=== PATIENT | female | born 1985 | race Two or more races ===

== ENCOUNTER 2024-10-24 20:12 | Emergency (ER) | payer MEDICAID, SELFPAY ==
[2024-10-24 20:56] VITALS: BP 128/88; PULSE 81; RESP 18; TEMP 36.4; O2SAT 96; BMI 36.1
--- NOTE | 2024-10-24 21:02 | XR_ITS ---
Examination: Clavicle 2 views, left Technique: Clavicle AP, angled up AP, 2 views Exam date and time: October 24 2024 2100 hours INDICATIONS: Injured the shoulder 2 days ago, shoulder pain. FINDINGS: Mild calcific tendinitis No clavicle fracture. No residual separation IMPRESSION: No clavicle fracture
--- NOTE | 2024-10-24 21:02 | XR_ITS ---
Examination: Shoulder,left, 3 views Technique: Shoulder AP internal rotation, AP external rotation, Y view shoulder, 3 views Exam date and time :October 24, 2024 2100 hours INDICATIONS: Left shoulder pain and injury disorder beginning 2 days ago FINDINGS: No shoulder fracture or dislocation Mild calcific tendinitis IMPRESSION: No shoulder fracture or dislocation
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
[2024-10-24] MEDS: KETOROLAC INJ 60 MG/2 ML VIAL 30 MG IM (21:24)
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
== END 2024-10-24 22:16 | disposition home or self-care (01) ==
PROVIDERS: Emergency Provider Emergency Medicine; PCP Family Medicine
DX: M75.32 Calcific tendinitis of left shoulder (principal)
CPT/HCPCS: 73000; 73030; 96372; 99283; J1885

== ENCOUNTER 2025-01-14 22:48 | Emergency (ER) | payer MEDICAID, SELFPAY ==
[2025-01-14 22:48] VITALS: BMI 33.5
[2025-01-14 23:10] VITALS: BP 170/98; PULSE 60; RESP 20; TEMP 36.8; O2SAT 96
--- NOTE | 2025-01-14 23:29 | PD.EDDENTL ---
ED Dental RME/HPI General Chief complaint: Dental/Oral/Throat Stated complaint: TOOTH PAIN Time Seen by Provider: 01/14/25 23:08 Source: patient and family Arrival date/time: 01/14/25 22:48 Mode of arrival: ambulatory Limitations: no limitations RME / HPI RME / HPI Narrative: 39-year-old female presents to the ED with complaint of dental pain that began last night. Onset (ago): day(s) (1.5) Duration: constant Severity: moderate Severity scale (1-10): 4 Relieving factors: nothing Exacerbating factors: chewing Context: history of dental caries Associated symptoms: gum swelling Treatment prior to arrival: none Related Data Previous Rx's ?Medication ?Instructions ?Recorded ibuprofen 800 mg tablet 800 mg PO TID PRN pain #30 tabs 02/18/22 etodolac 400 mg tablet 400 mg PO BID PRN pain #30 tabs 05/25/22 metaxalone 800 mg tablet 800 mg PO TID PRN muscle pain #30 05/25/22 tabs naproxen 500 mg tablet 500 mg PO BID PRN pain #30 tabs 05/22/23 ondansetron 4 mg disintegrating 4 mg PO Q8H PRN nausea and 05/22/23 tablet vomiting #30 tabs acetaminophen 500 mg capsule 500 mg PO Q6H PRN pain #30 caps 10/24/24 ibuprofen 600 mg tablet 600 mg PO Q8H PRN pain #20 tabs 10/24/24 Allergies Allergy/AdvReac Type Severity Reaction Status Date / Time No Known Allergies Allergy Verified 01/14/25 22:51 Review of Systems Review of Systems Systems Reviewed: All systems reviewed, normal except as documented ED Exam General Limitations: Present no limitations General appearance: Present alert and in no apparent distress Head Head exam: Present atraumatic and normocephalic Eye Eye exam: Present normal appearance and EOMI ENT ENT exam: Present normal oropharynx (TEETH 6 &7 DECAYED) and mucous membranes moist Neck Neck exam: Present normal inspection and full ROM Chest Chest inspection: Present normal inspection Extremities Exam Extremities exam: Present normal inspection and full ROM Back Exam Back exam: Present normal inspection Neurological Exam Neurological exam: Present alert and oriented X3 Psychiatric Psychiatric exam: Present normal affect and normal mood Skin Skin exam: Present warm, dry and intact Course Quality Measures none Orders Category Date Time Status Ketorolac Inj [Toradol Inj] Med 01/14/25 23:22 Discontinued 30 mg IM X1 ONE Vital Signs Vital signs: Vital Signs Temperature 98.3 F 01/14/25 23:10 Pulse Rate 60 01/14/25 23:10 Respiratory Rate 20 01/14/25 23:10 Blood Pressure 170/98 H 01/14/25 23:10 Pulse Oximetry (%) 96 01/14/25 23:10 Oxygen Delivery Method Room Air 01/14/25 23:10 Pulse ox 96% room air Dental / Oral MDM Narrative MDM Narrative:: Patient will have 30 mg Toradol she will be sent home with a prescription for penicillin and ibuprofen Patient data External records reviewed:: Other (specify) Clinical information provided by:: patient and family Social determinants that could affect healthcare access:: none Patient has the following chronic illnesses:: NA How is presenting disease/condition affected by chronic disease/condition?: caused by Evaluation data The following diagnostics were reviewed and interpreted by me:: lab results (NO LABS) Lab and/or radiology exams considered but not ordered:: NA Interpretation Summary: NA Medications / Prescriptions Medications or Prescriptions considered but not ordered:: NA Medication administrations:: Medication Administration History Discontinued Medications Ketorolac Tromethamine (Ketorolac Inj 60 Mg/2 Ml Vial) 30 mg IM X1 ONE Stop: 01/14/25 23:23 Last Admin: 01/14/25 23:42 Dose: 30 mg Documented By: MELIZA SERRATO Consultations Consultation(s) initiated? (list below): No Diagnosis Dental Differential Diagnosis: dental caries and toothache Most likely diagnosis given after review of the tests above:: NA Admission Indicated Admission indicated?: not indicated Admission Request Was there a request for admission?: No Disposition Plan Disposition Plan: Discharge Discharge Attestation Discharge Attestation: The patient and all family members were given an opportunity to ask questions and understood the discharge instructions. Discharge instructions specifically effects, indications for sooner follow up or return to the emergency department, and the expected course of current diagnosis. Patient condition: Stable Discharge Plan Plan Patient Disposition: HOME (Self Care) Disposition Comment: PT. IS TO THE [facility] Patient condition on transfer: Stable Prescriptions/Referrals Prescriptions/Med Rec: No Action ibuprofen 800 mg tablet 800 mg PO TID PRN (Reason: pain) Qty: 30 0RF etodolac 400 mg tablet 400 mg PO BID PRN (Reason: pain) Qty: 30 0RF metaxalone 800 mg tablet 800 mg PO TID PRN (Reason: muscle pain) Qty: 30 0RF naproxen 500 mg tablet 500 mg PO BID PRN (Reason: pain) Qty: 30 0RF ondansetron 4 mg tablet,disintegrating 4 mg PO Q8H PRN (Reason: nausea and vomiting) Qty: 30 0RF acetaminophen 500 mg capsule 500 mg PO Q6H PRN (Reason: pain) Qty: 30 0RF ibuprofen 600 mg tablet 600 mg PO Q8H PRN (Reason: pain) Qty: 20 0RF Problem List Clinical Impression: Toothache Patient/Caregiver Discharge Instructions Education Materials: ED Dental Pain Print Language: Sinhala Stand Alone Forms: Patient Portal Info Letter PA/LINSEED OIL PRESS TENDER Supervising Physician FER/ALYSIA Supervising Physician: ROOSEVELT
[2025-01-14] MEDS: KETOROLAC INJ 60 MG/2 ML VIAL 30 MG IM (23:42)
== END 2025-01-14 23:46 | disposition home or self-care (01) ==
LOC: SERX 23:51
PROVIDERS: Emergency Provider Emergency Medicine; PCP Family Medicine
DX: K08.89 Other specified disorders of teeth and supporting structures (principal)
CPT/HCPCS: 96372; 99283; J1885

== ENCOUNTER 2025-05-06 04:04 | Emergency (ER) | payer MEDICAID, SELFPAY ==
[2025-05-06 04:08] VITALS: BMI 32.4
[2025-05-06 04:11] VITALS: BP 124/92; PULSE 84; RESP 18; TEMP 36.5; O2SAT 98
--- NOTE | 2025-05-06 04:50 | XR_ITS ---
Examination: Thoracic spine 2 views TECHNIQUE: AP lateral thoracic spine 2 views Date and time: May 06, 2025, 0511 hours INDICATIONS: Onset of mid back pain today. FINDINGS: Adequate alignment of thoracic vertebral bodies. No thoracic fracture. Mild diffuse thoracic degenerative disc disease. IMPRESSION: Mild diffuse thoracic degenerative disc disease.
--- NOTE | 2025-05-06 05:25 | EDNOTE_ITS ---
ED Back Injury Pain RME/HPI General Chief Complaint: General Adult/Misc Complain Stated Complaint: PAIN TO MID BACK BILATERAL TO THE SPINE Time Seen by Provider: 05/06/25 04:34 Arrival date/time: 05/06/25 04:04 This is a case of 39-year-old female with no medical history came in in the emergency room due to mid back pain for 5 days patient denies any injury or trauma denies any shortness of breath or chest pain denies any numbness weakness tingling sensation incontinence to urine or stool Limitations: no limitations Related Data Previous Rx's ?Medication ?Instructions ?Recorded ibuprofen 800 mg tablet 800 mg PO TID PRN pain #30 t abs 02/18/22 etodolac 400 mg tablet 400 mg PO BID PRN pain #30 t abs 05/25/22 metaxalone 800 mg tablet 800 mg PO TID PRN muscle sally n #30 05/25/22 tabs naproxen 500 mg tablet 500 mg PO BID PRN pain #30 t abs 05/22/23 ondansetron 4 mg disintegrating 4 mg PO Q8H PRN nausea and 05/22/23 tablet vomiting #30 tabs acetaminophen 500 mg capsule 500 mg PO Q6H PRN pain #3 0 caps 10/24/24 ibuprofen 600 mg tablet 600 mg PO Q8H PRN pain #20 t abs 10/24/24 baclofen 10 mg tablet 10 mg PO BID PRN muscle spas m #10 05/06/25 tabs hydrocodone 5 mg-acetaminophen 325 1 tab PO Q6H PRN pa in #12 tabs 05/06/25 mg tablet lidocaine 5 % topical patch 1 patch topical QDAY #15 e a 05/06/25 (Lidoderm) Allergies Allergy/AdvReac Type Severity Reaction Status Date / Time latex Allergy Verified 05/06/25 04:13 Review of Systems Review of Systems Systems Reviewed: All systems reviewed, normal except as documented Constitutional Constitutional: Reports system reviewed and no additional complaints, except as documented and Reports as per HPI ENT Ears, Nose, Mouth, and Throat: Denies neck pain Cardiovascular Cardiovascular: Reports system reviewed and no additional complaints, except as documented and Reports as per HPI Respiratory Respiratory: Reports system reviewed and no additional complaints, except as documented and Reports as per HPI Gastrointestinal Gastrointestinal: Reports system reviewed and no additional complaints, except as documented, Reports as per HPI and Denies abdominal pain Genitourinary Genitourinary: Reports system reviewed and no additional complaints, except as documented, Reports as per HPI and Denies dysuria Musculoskeletal Musculoskeletal: Reports system reviewed and no additional complaints, except as documented, Reports back pain, Denies deformity, Denies muscle cramps, Denies neck pain, Denies numbness, Denies radiating pain into limb, Denies stiffness a nd Denies tingling Neurologic Neurologic: Reports system reviewed and no additional complaints, except as documented, Reports as per HPI, Denies numbness and Denies tingling Past Medical History Social History SMOKING STATUS: Never smoker ED Exam General Limitations: Present no limitations General appearance: Present alert, in no apparent distress and other (Patient is awake alert oriented not in distress nontoxic looking well-hydrated well- nourished) Head Head exam: Present atraumatic, normocephalic and normal inspection Eye Eye exam: Present normal appearance, PERRL and EOMI ENT ENT exam: Present normal exam, normal oropharynx and mucous membranes moist Neck Neck exam: Present normal inspection, full ROM and trachea midline Chest Chest inspection: Present normal inspection and symmetric chest wall rise Respiratory Respiratory exam: Present normal lung sounds bilaterally; Absent respiratory di stress, wheezes, stridor, accessory muscle use or prolonged expiratory phase Cardiovascular Cardiovascular exam: Present regular rate, normal rhythm and normal heart sounds; Absent bradycardia, tachycardia, irregular rhythm, systolic murmur or diastolic murmur Abdominal Exam Abdominal exam: Present soft and normal bowel sounds; Absent distention, tenderness, guarding, rebound, rigidity, diminished bowel sounds, hyperactive bowel sounds, hypoactive bowel sounds or organomegaly Extremities Exam Extremities exam: Present normal inspection and full ROM Back Exam Back exam: Present normal inspection, full ROM, tenderness (Mild tenderness on the thoracic area no crepitation no deformity no cellulitis no redness) and muscle spasm; Absent CVA tenderness (R), CVA tenderness (L), paraspinal tenderness, vertebral tenderness, rashes, sciatic notch tenderness (R), sciatic notch tenderness (L), straight leg raise (R) or straight leg raise (L) Neurological Exam Neurological exam: Present alert, oriented X3, CN II-XII intact, normal gait and reflexes normal; Absent motor sensory deficit Psychiatric Psychiatric exam: Present normal affect and normal mood Skin Skin exam: Present warm, dry, intact and normal color Course Quality Measures none Orders Category Date Time Status XR thoracic spine 3V Stat Exams 05/06/25 04:50 Completed HYDROcodone*/APAP 5/325 [[place] 5/325] Med 05/06/25 04:50 Discontinued 1 tab PO X1 ONE Ketorolac Inj [Toradol Inj] Med 05/06/25 05:00 Discontinued 30 mg IM X1 ONE Vital Signs Vital signs: Vital Signs Temperature 97.7 F 05/06/25 04:11 Pulse Rate 84 05/06/25 04:11 Respiratory Rate 18 05/06/25 04:11 Blood Pressure 124/92 H 05/06/25 04:11 Pulse Oximetry (%) 98 05/06/25 04:11 Oxygen Delivery Method Room Air 05/06/25 04:11 Patient is afebrile not tachycardic not tachypneic BP stable not hypoxic oxygen saturation is 98% in room air Back Pain / Injury MDM Narrative MDM Narrative:: This is a case of 39-year-old female with no medical history came in in the emergency room due to mid back pain for 5 days patient denies any injury or trauma denies any shortness of breath or chest pain denies any numbness weakness tingling sensation incontinence to urine or stool physical examination patient is awake alert oriented not in distress nontoxic looking neurological exam is normal and unremarkable back exam noted mild to moderate tenderness on the thoracic area no crepitation no deformity no redness no swelling mild muscle spasm no paraspinal no paravertebral tenderness leg raise exam is normal steady gait no CVA tenderness no signs and symptoms of cauda equina no numbness no weakness no tingling sensation no incontinence to urine or stool x-ray showed of the thoracic area DDD of thoracic at this point patient was given a Toradol and [place] which patient condition markedly improved she was advised to see a neurosurgeon for MRI to rule out herniated disc and pain management offered pain control she will follow-up with PCP in 2 days for reevaluation and for any recurrence persistent worsening symptoms she will return to the emergency room immediately or call 911 patient was prescribed with [place] and baclofen for pain and muscle relaxant Patient was discharged with comfortable condition walking with stable gait. Patient verbalized no further complains explained diagnosis and answered patient question. Patient is comfortable with the proposed management plan including the need to follow up with his/her primary care physician and any specialist if applicable Discussed patient for any urgent condition or worsening sx, He/She needed to go to emergency room immediately or call 911. Patient acknowledge the responsibility to follow up as instructed and to monitor her/his symptoms. For any persistence of the symptoms for more than 3-5 days return precaution advised. Discussed the result of the test and was given printed discharge instruction Patient data External records reviewed:: [facility] previous records Clinical information provided by:: none Social determinants that could affect healthcare access:: none Patient has the following chronic illnesses:: None How is presenting disease/condition affected by chronic disease/condition?: no chronic disease Evaluation data The following diagnostics were reviewed and interpreted by me:: radiology exam(s) Lab and/or radiology exams considered but not ordered:: Reviewed Interpretation Summary: Reviewed Medications / Prescriptions Medications or Prescriptions considered but not ordered:: Given Medication administrations:: Medication Administration History Discontinued Medications Hydrocodone Bitart/Acetaminophen (Hydrocodone/Apap 5/325 Tablet) 1 tab PO X1 ONE Stop: 05/06/25 04:51 Last Admin: 05/06/25 05:44 Dose: 1 tab Documented By: LIBAN Ketorolac Tromethamine (Ketorolac Inj 30 Mg/Ml Vial) 30 mg IM X1 ONE Stop: 05/06/25 05:01 Last Admin: 05/06/25 05:45 Dose: 30 mg Documented By: LIBAN Given Consultations Consultation(s) initiated? (list below): No Diagnosis Differential diagnosis back pain/injury: lumbar radiculopathy, sciatica and thoracic back pain Most likely diagnosis given after review of the tests above:: DDD thoracic area Admission Indicated Admission indicated?: not indicated Explain why admission is indicated or not indicated:: Not indicated Admission Request Was there a request for admission?: No Admission Attestation Admission request attestation: Not indicated Disposition Plan Disposition Plan: Discharge Discharge Attestation Discharge Attestation: The patient and all family members were given an opportunity to ask questions and understood the discharge instructions. Discharge instructions specifically effects, indications for sooner follow up or return to the emergency department, and the expected course of current diagnosis. Patient condition: Stable Discharge Plan Plan Patient Disposition: HOME (Self Care) Patient condition on transfer: Stable Prescriptions/Referrals Prescriptions/Med Rec: New hydrocodone-acetaminophen 5-325 mg tablet 1 tab PO Q6H MDD max 4 tabs per day PRN (Reason: pain) Qty: 12 0RF lidocaine [Lidoderm] 5 % adhesive patch,medicated 1 patch topical QDAY Qty: 15 0RF Rx Instructions: leave on most painful area for up to 12 hrs baclofen 10 mg tablet 10 mg PO BID PRN (Reason: muscle spasm) Qty: 10 0RF No Action ibuprofen 800 mg tablet 800 mg PO TID PRN (Reason: pain) Qty: 30 0RF etodolac 400 mg tablet 400 mg PO BID PRN (Reason: pain) Qty: 30 0RF metaxalone 800 mg tablet 800 mg PO TID PRN (Reason: muscle pain) Qty: 30 0RF naproxen 500 mg tablet 500 mg PO BID PRN (Reason: pain) Qty: 30 0RF ondansetron 4 mg tablet,disintegrating 4 mg PO Q8H PRN (Reason: nausea and vomiting) Qty: 30 0RF acetaminophen 500 mg capsule 500 mg PO Q6H PRN (Reason: pain) Qty: 30 0RF ibuprofen 600 mg tablet 600 mg PO Q8H PRN (Reason: pain) Qty: 20 0RF Referrals: Everton Wren MD [Primary Care Provider] - In 1 week Problem List Clinical Impression: Strain of thoracic spine, DDD (degenerative disc disease), thoracic, Muscle spasm Patient/Caregiver Discharge Instructions Education Materials: ED Back Sprain/Strain, ED Degenerative Disk Disease, ED Muscle Spasm Additional Instructions: Follow-up with your primary care physician in 2 days for reevaluation and to be referred to a neurosurgeon for further evaluation and treatment of DDD thoracic area for possible MRI to rule out herniated disc and pain management doctor for pain control worsening symptoms or any emergent concerns such as numbness weakness tingling sensation incontinence to urine or stool call 911 or go to the nearest emergency room take your medication as directed ice pack and warm compress as needed for pain Print Language: Bulgarian Stand Alone Forms: Ritu Award Info., Patient Portal Info Letter PA/ARCHIVIST Supervising Physician PA/ARCHIVIST Supervising Physician: Dr [email or web address]
[2025-05-06] MEDS: HYDROcodone/APAP 5/325 TABLET 1 TAB PO (05:44)
[2025-05-06] MEDS: KETOROLAC INJ 30 MG/ML VIAL IM (05:45)
== END 2025-05-06 05:48 | disposition home or self-care (01) ==
PROVIDERS: Emergency Provider Family Medicine; PCP Family Medicine
DX: S29.012A Strain of muscle and tendon of back wall of thorax, initial encounter (principal); M51.34 Other intervertebral disc degeneration, thoracic region; X58.XXXA Exposure to other specified factors, initial encounter
CPT/HCPCS: 72072; 96372; 99283; J1885; A9270